=== PATIENT | female | born 1990 | race Caucasian/White ===

== ENCOUNTER 2020-12-30 23:52 | Emergency (ER) | payer BC, SELFPAY ==
[2020-12-30 23:57] VITALS: BP 149/93; PULSE 72; RESP 15; TEMP 36.3; O2SAT 100
[2020-12-31 00:24] LABS: Basophils Percent Auto 0.4 % (0.2-1.2); Eosinophils Absolute Auto 0.2 K/mm3 (0-0.3); Eosinophils Percent Auto 1.6 % (0-4.4); Hematocrit 39.6 % (37.0-47.0); Hemoglobin 13.4 g/dL (12.0-15.0); Immature Granulocyte Absolute 0.03 K/mm3 (0.00-0.031); Immature Granulocyte Percent A 0.3 % (0-0.5); Lymphocytes Absolute Auto 4.84 K/mm3 (0.9-3.2); Lymphocytes Percent Auto 44.2 % (18.3-44.2); Mean Corpuscular HGB Conc 33.8 g/dl (32-36); Mean Corpuscular Hemoglobin 28.2 pg (26-34); Mean Corpuscular Volume 83.2 fl (80-100); Mean Platelet Volume 10.1 fl (7.4-10.4); Monocytes Absolute Auto 0.9 K/mm3 (0.1-0.6); Monocytes Percent Auto 8.6 % (2.6-8.5); Neutrophils Absolute Auto 4.9 K/mm3 (1.3-6.7); Neutrophils Percent Auto 44.9 % (45.5-73.1); Platelet Count Result 264 k/mm3 (150-375); Red Blood Count 4.76 M/mm3 (4.2-5.4)
[2020-12-31 00:33] LABS: Prothrombin Time 12.8 Seconds (11.1-14.7)
[2020-12-31 00:34] LABS: Alanine Aminotransferase 17 U/L (4-35); Albumin Level 3.9 g/dL (3.5-5.1); Alkaline Phosphatase 69 U/L (38-126); Anion Gap 10 mmol/L (8-16); Aspartate Amino Transferase 24 U/L (14-36); Bilirubin,Total 0.3 mg/dL (0.2-1.3); Blood Urea Nitrogen 15 mg/dL (7-17); Calcium 8.8 mg/dL (8.4-10.2); Carbon Dioxide 22 mmol/L (22-30); Chloride 106 mmol/L (98-107); Estimated CRCL calculation 136 ml/min; Estimated Glomerular Filt Rate > 60; Glucose 102 mg/dL (65-110); Partial Thromboplastin Time 33.1 SECONDS (22.3-36.8); Potassium 3.8 mmol/L (3.4-5.0); Sodium 138 mmol/L (137-145)
[2020-12-31 00:41] LABS: Add Urine Microscopic? YES; Appearance Urine Cloudy (Clear); Bilirubin Urine Negative (Negative); Blood Urine 3+ (Negative); Color Urine Yellow (Yellow); Glucose Urine UA Negative (Negative); Ketones Urine Negative (Negative); Leukocyte Esterase Ur Negative LEU/UL (Negative); Nitrate Urine Negative (Negative); Protein Urine 2+ mg/dL (Negative); RBC Urine >75 /hpf (0-2); Squamous Epithelial Cell Urine Occasional /hpf (Few); Urobilinogen Urine Negative mg/dL (<2.0)
[2020-12-31 00:44] LABS: Specific Grav Ur 1.034 (1.001-1.035)
--- NOTE | 2020-12-31 00:54 | ED.GENADULT ---
HPI - General Adult General Chief complaint: HR GENERALIST Stated complaint: vag bleeding, cramping Time Seen by Provider: 12/31/20 00:14 History of Present Illness HPI narrative: Patient is a 30-year-old female presents to emergency department with chief complaint of vaginal bleeding. Patient reports that she has been bleeding for several days reports that she has been on control vaginal ring be removed whenever she started spotting. Patient states that she has had some cramping and reports that she has been passing some large clots. The patient denies lightheadedness denies syncope. Patient states that the symptoms or not improved by anything reports she went through several pads in the last hour. Patient states that she is not had problems with heavy bleeding like this before in the past. Patient denies being . Related Data Allergies Allergy/AdvReac Type Severity Reaction Status Date / Time No Known Allergies Allergy Mild Verified 08/27/07 17:44 Review of Systems Review of Systems: A 10 system review of systems was completed on the patient and is negative except for what is stated in the HPI. Nursing and ancillary documentation was reviewed. Exam Narrative: GENERAL: Well-appearing, well-nourished, and in no acute distress. HEAD: Normocephalic, atraumatic. EYES: PERRLA and EOMI. ENT: Nares clear, no rhinorrhea or epistaxis. Mucous membranes moist. NECK: Supple. CHEST: Clear to auscultation. No respiratory distress. HEART: Regular rate and rhythm. No murmur heard. Normal peripheral pulses. ABDOMEN: Soft, nontender, nondistended, normal active bowel sounds. EXTREMITIES: Normal range of motion. No edema. SKIN: Warm, dry, no rash. NEURO: No focal deficits. Alert and oriented x3. PSYCH: Normal mood and affect. Course Vital Signs Vital signs: Vital Signs Temperature 36.3 C L 12/30/20 23:57 Pulse Rate 72 12/30/20 23:57 Respiratory Rate 15 12/30/20 23:57 Blood Pressure 149/93 H 12/30/20 23:57 Pulse Oximetry 100 12/30/20 23:57 Temperature 36.3 C L 12/30/20 23:57 Pulse Rate 72 12/30/20 23:57 Respiratory Rate 15 12/30/20 23:57 Blood Pressure 149/93 H 12/30/20 23:57 Pulse Oximetry 100 12/30/20 23:57 Medical Decision Making Vital Signs Vital Signs: Vital Signs Temperature 36.3 C L 12/30/20 23:57 Pulse Rate 72 12/30/20 23:57 Respiratory Rate 15 12/30/20 23:57 Blood Pressure 149/93 H 12/30/20 23:57 Pulse Oximetry 100 12/30/20 23:57 Temperature 36.3 C L 12/30/20 23:57 Pulse Rate 72 12/30/20 23:57 Respiratory Rate 15 12/30/20 23:57 Blood Pressure 149/93 H 12/30/20 23:57 Pulse Oximetry 100 12/30/20 23:57 Lab Data Result diagrams: 12/31/20 00:19 12/31/20 00:19 Labs: Lab Results 12/31/20 12/31/20 12/31/20 Range/Units 00:19 00:19 00:19 WBC 11.0 H (4.5-10.0) K/mm3 RBC 4.76 (4.2-5.4) M/mm3 Hgb 13.4 (12.0-15.0) g/dL Hct 39.6 (37.0-47.0) % MCV 83.2 (80-100) fl MCH 28.2 (26-34) pg MCHC 33.8 (32-36) g/dl RDW 12.0 (11.5-14.5) % Plt Count 264 (150-375) k/mm3 MPV 10.1 (7.4-10.4) fl Immature Gran % (Auto) 0.3 (0-0.5) % Neut % (Auto) 44.9 L (45.5-73.1) % Lymph % (Auto) 44.2 (18.3-44.2) % [place] % (Auto) 8.6 H (2.6-8.5) % Eos % (Auto) 1.6 (0-4.4) % Baso % (Auto) 0.4 (0.2-1.2) % Lymph # (Auto) 4.84 H (0.9-3.2) K/mm3 [place] # (Auto) 0.9 H (0.1-0.6) K/mm3 Eos # (Auto) 0.2 (0-0.3) K/mm3 Baso # (Auto) 0.0 (0.0-0.1) K/mm3 Abs Immat Gran (auto) 0.03 (0.00-0.031) K/mm3 Absolute Neuts (auto) 4.9 (1.3-6.7) K/mm3 Absolute Nucleated RBC 0.0 (0.0-0.012) K/mm3 Nucleated RBC % 0.0 (0.0-0.2) % PT 12.8 (11.1-14.7) Seconds INR 1.0 APTT 33.1 (22.3-36.8) SECONDS Sodium 138 (137-145) mmol/L Potassium 3.8 (3.4-5.0) mmol/L Chloride 106 (98-107) mmol/L Carbon Dioxide 22 (22-30) mmol/L An
[2020-12-31 01:30] VITALS: BP 120/76; PULSE 65; RESP 17; TEMP 36.5; O2SAT 100
== END 2020-12-31 01:31 | disposition home or self-care (01) ==
PROVIDERS: Emergency Provider Emergency Medicine
DX: N93.8 Other specified abnormal uterine and vaginal bleeding (principal)
CPT/HCPCS: 36415; 80053; 81001; 81025; 85025; 85610; 85730; 87086; 87088; 99283

== ENCOUNTER 2024-06-06 09:18 | Outpatient (CLI) | payer OTHER, SELFPAY ==
[2024-06-06 09:46] LABS: Hemoglobin A1C 5.1 % (<5.7)
--- OUTSIDE RECORDS SUMMARY | 2024-06-06 10:14 | XMS_ITS | CONTINUITY OF CARE DOCUMENT ---
Author Name charissaadriannatraci loco Address Unknown Organization [facility] Address [address] [place] [address] Phone [phone] Care Team Providers Care Land Management Forester Name Role Phone Josiah Barahona MD Unavailable Josiah Barahona MD Unavailable [phone] INS[employer]ANCE [employer] Payer name Policy type / Coverage type [place] red libertarian ID [employer] [facility] Commercial insurance company [id number] [facility] [id number]
[2024-06-07 00:21] LABS: Progesterone 1.4 ng/mL
[2024-06-07 02:09] LABS: DHEA-Sulfate 275 mcg/dL (19-237); FSH 3.3 mIU/mL; Prolactin 9.8 ng/mL
[2024-06-08 11:48] LABS: Testosterone Total 53 ng/dL (2-45)
== END 2024-06-06 09:19 | disposition home or self-care (01) ==
LOC: ANHLAB 09:19
PROVIDERS: Visit Provider Student in an Organized Health Care Education/Training Program
DX: E28.2 Polycystic ovarian syndrome (principal)
CPT/HCPCS: 36415; 82627; 82670; 83001; 83036; 84144; 84146; 84403

== ENCOUNTER 2025-01-05 00:54 | Observation (INO) | payer OTHER, SELFPAY ==
--- NOTE | ~2025-01-05 | US_ITS ---
EXAMINATION: US OB limited, US OB transvaginal DATE: 01/05/2025 08:10 INDICATION: Vaginal bleeding. Assess placenta. TECHNIQUE: Real-time ultrasound of the pelvis was performed. The interpreting radiologist was not present for the study. COMPARISON: None. FINDINGS: There is a single living fetus in variable presentation. The placenta is fundal with caudal margin 4.4 cm from the internal cervical os. heart rate is 146 beats per minute (bpm). The amniotic fluid index is 9.9 cm, which is normal. (5th%-95%: 8.7-20.2 cm at 18 weeks estimated gestational age). Cervical length of 4.5 cm with minimal amount of anechoic fluid measuring up to 2 mm in maximal thickness in the endocervical canal. IMPRESSION: 1. Single living fetus in variable presentation with heart rate of 146 bpm. 2. Normal amniotic fluid index of 9.9 cm. Reviewed, dictated and finalized at location A. EMENTATION DIRECTOR IMPRESSION: 1. Single living fetus in variable presentation with heart rate of 146 bp m. 2. Normal amniotic fluid index of 9.9 cm.
[2025-01-05 00:58] VITALS: BP 138/95; PULSE 91; RESP 20; TEMP 36.9; O2SAT 99
[2025-01-05 01:55] VITALS: BP 129/87; PULSE 94; RESP 20; O2SAT 98
[2025-01-05 02:01] VITALS: BP 141/99; O2SAT 97
--- OUTSIDE RECORDS SUMMARY | 2025-01-05 02:04 | XMS_ITS | Clinical Summary ---
Author Organization [facility] Address [address] [place] [address] Care Team Providers Care Freight Trucker Name Role Phone Unavailable Primary Care Provider Unavailabl e Source Comments [facility],non-owned Affiliates and Associated Physician Practices is amultiple site organization consisting of ambulatory clinics and hospital sitesin [place], [place], [place] and [place]. This disclosure is being madepursuant to the Care Everywhere program and may not contain all information available regarding this patient. Last updated 17.[facility] Allergies Active Allergy Reactions Criticality Noted Date Comments Nifedipine Urticaria Medium 11/21/2024 Medications * Be aware that medications may not be up to date on this document. Alwaysverify current medications with the patient. Vit-Fe Fumarate-FA (VINATE ONE) 60-1 MG TABS 7 Active enoxaparin (Lovenox) 40 MG/0.4ML injectionIndic ations:Deep Vein Thrombosis Inject 0.4 mL subcutaneously once daily Reasons: Blood Clot in a Deep Vein Active famotidine (Pepcid) 10 MG tablet Take 1 (one) tablet by mouth Active metoclopramide (Reglan) 10 MG tabletIndicati ons:Nausea and/or Vomiting in Take 0.5 (one-half) tablet by mouth once Reasons: Nausea and Vomiting in Active aspirin EC (Ecotrin) 81 MG tabletIndicati ons:Preeclamps ia Take 1 (one) tablet by mouth once daily Reasons: Increased Blood Pressure and Edema During Active Active Problems Problem Noted Date Diagnosed Date Nausea and vomiting during 12/02/2024 Advanced maternal age in multigravida 11/23/2024 History of section complicating pregnan cy 11/23/2024 BMI 36.0-36.9,adult 11/23/2024 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 resulting from in vitro fertilization, antepartum 11/23/2024 Personal history of DVT (deep vein thrombosis) 1 Estimated Date of Delivery Comme nts Yes 06/08/2025 Based on Patient Reported, 5 Day transfer day on 09/20 Encounters Date Type Department Care Team Description 12/20/2024 8:10 AM WET SUIT GLUER - 12/20/2024 11:59 PM WET SUIT GLUER Hospital Encounter [facility] [address] [place] [phone] Lizy Shipman MD Discharge Disposition: Home or Self Care 11/29/2024 Telephone [facility] [address] [place] [phone] Briana Grace RN Results (NIPT) 11/23/2024 8:56 AM CDT - 11/23/2024 11:59 PM CDT Hospital Encounter [facility] [address] [place] [phone] Yesenia Mueller MD Discharge Disposition: Home or Self Care 11/23/2024 8:54 AM CDT - 11/23/2024 8:55 AM CDT Hospital Encounter [facility] [address] [place] [phone] Yesenia Mueller MD Discharge Disposition: Home or Self Care from Last 3 Months Family History Medical History Relation Name Comments Hypertension Brother Cancer Father Diabetes - Type 2 Father Other - Cardiac Father COPD - Chronic Obstructive Pulmonary Disease Mother Other - Cardiac Mother Schizophrenia Mother Cancer - Prostate Paternal Grandfather Diabetes - Type 2 Paternal Grandfather Hypertension Paternal Grandfather Osteoporosis Paternal Grandmother Other - Cardiac Paternal Grandmother Relation Name Status Comments Brother Father Maternal Grandfather Maternal Grandmother Mother Paternal Grandfather Paternal Grandmother Social History Tobacco Use Types Packs/Day Years Used Date Smoking Tobacco: Never Smokeless Tobacco: Never Alcohol Use Standard Drinks/Week Comments Not Currently 0 (1 standard drink = 0.6 oz pur e alcohol) Estimated Date of Delivery Comme nts Yes 06/08/2025 Based on Patient Reported, 5 Day transfer day on 09/20 Sex and Gender Information Value Date Recorded Sex Assigned at Not on file Legal Sex Female 5:12 PM WET SUIT GLUER Gender Identity Not on file Sexual Orientation Not on file Last Filed Vital Signs Vital Sign Reading Time Taken Comments Blood Pressure 125/84 11/23/2024 9:29 AM CDT Pulse 73 11/23/2024 9:29 AM CDT Temperature - - Respiratory Rate - - Oxygen Saturation - - Inhaled Oxygen Concentration - - Weight 100.8 kg (222 lb 3.2 oz) 02/04/2017 3:13 PM WET SUIT GLUER Height 167.6 cm (5' 6) 11/23/2024 9:29 AM CDT Body Mass Index 35.86 02/04/2017 3:13 PM WET SUIT GLUER Plan of Treatment Upcoming Encounters Date Type Department Care Team (Late st Contact Info) Description 01/18/2025 9:45 AM WET SUIT GLUER Appointment [facility] [address] [place], [place] [id number] Health Maintenance Due Date Last Done Comments HIV SCREENING 2003 HEPATITIS C SCREENING 04/01/2006 DTAP/TDAP/TD VACCINES (1 - Tdap) 2007 HEPATITIS B VACCINE (1 of 3 - 19+ 3-dose series) 2007 Cervical Cancer Screening 2009 PAP SMEAR 2009 HPV VACCINE (1 - 3-dose SCDM series) 2015 PAP with HPV 2018 DEPRESSION SCREENING 02/17/2024 COVID-19 VACCINE ( - 2024-2 6 season) 2024 INFLUENZA VACCINE (#1) 2024 OB-TDAP CURRENT 03/09/2025 04/19/2018 ZOSTER VACCINE (1 of 2) 2038 HIB VACCINE Aged Out No longer eligi ble based on patient's age to complete this topic MENINGOCOCCAL (Group B) VACC INE SHARED DECISION-MAKING Aged Out No longer eligibl e based on patient's age to complete this topic MENINGOCOCCAL GROUPS A/C/Y/W VACCINE Aged Out No longer eligible b ased on patient's age to complete this topic PNEUMOCOCCAL VACCINE Aged Out No long er eligible based on patient's age to complete this topic Respiratory Syncytial Virus (RSV) Vaccine Pt: or over 60 yrs (No Doses Required) Completed Procedures Procedure Name Priority Date/Time Associated Diagnosis Comments SONOGRAM - COMPLETE Routine 12/20/2024 8:18 AM WET SUIT GLUER History of DVT (deep vein thrombosis) resulting from in vitro fertilization, antepartum (HCC) Antepartum multigravida of advanced maternal age (HCC) History of 3 sections Maternal morbid obesity, antepartum (HCC) Encounter for nuchal translucency testing (HCC) Encounter for ultrasound (HCC) SONOGRAM - COMPLETE Routine 11/23/2024 9:01 AM CDT History of DVT (deep vein thrombosis) resulting from in vitro fertilization, antepartum (HCC) Antepartum multigravida of advanced maternal age (HCC) Encounter for nuchal translucency testing (HCC) from Last 3 Months Results * Sonogram - Complete (12/20/2024 8:18 AM WET SUIT GLUER) Only the most recent of2 resultswithin the time period is included. Linked Results Indication ======== Encounter for assisted reproductive fertility procedure cycle Advanced maternal age (AMA), multigravida Maternal obesity complicating , class 2 (BMI 35.0 - 39.9) Maternal History of DVT Personal history of other specified conditions anatomy evaluation History ====== General History Family History of DiGeorge, Niece-FOB is patients half brother OB History 5. Para 3 [id number] 1. live 2008. Gest. age 37 w + 0 d. Weight 2,920 g. Sex of child: male. Details: delivery; Elevated BP 2. live 2010. Gest. age 39 w + 0 d. Weight 3,940 g. Sex of child: male. Details: delivery 3. live 2018. Gest. age 37 w + 0 d. Weight 3,486 g. Sex of child: male. Details: delivery; Elevated BP Lab Tests Test Date Result NIPT Low risk, Male, Negative for DiGeorge Maternal Assessment Physical Exam Height 168 cm, 5 ft 6 in. Initial weight 104 kg, 229 lb. Initial BMI 36.96 kg/m Method ====== Transabdominal ultrasound. View: Sufficient ========= [facility] . Number of fetuses: 1 Dating ====== Date Details Gest. age CHRISTINE Conception Conception: IVF Embryo transfer 09/20/2024 IVF / ET: 5 d 15 w + 5 d 06/08/2025 Stated CHRISTINE 15 w + 5 d 06/08/2025 U/S 12/20/2024 based upon AC, BPD, Femur, HC 16 w + 3 d 06/03/2025 Assigned dating based on the IVF / ET date, selected on 11/23/2024 15 w + 5 d 06/08/2025 General Evaluation Cardiac activity present. FHR 145 bpm. Presentation: breech Placenta: Placental site: anterior Umbilical cord: Cord vessels: 3 vessel cord. Insertion site: normal insertion Amniotic fluid: Amount of AF: normal. MVP 4.5 cm Biometry BPD 33.6 mm 16w 3d 78% Hadlock HC 128.2 mm 16w 4d 78% Hadlock AC 117.5 mm 17w 3d 95% Hadlock Femur 18.1 mm 15w 3d 31% Hadlock Humerus 17.7 mm 15w 0d 28% Allison HC / AC 1.09 -/- 2% Hadlock Weight Calculation: EFW 157 g 86% Hadlock EFW (lb,oz) 0 lb 6 oz EFW by Hadlock (CAA-GA-TC-FL) overall normal range, but the AC is >90% Growth Overview Exam date GA BPD (mm) HC (mm) AC (mm) FL (mm) HL (mm) EFW (g) 12/20/2024 15w 5d 33.6 78% 128.2 78% 117.5 95% 18.1 31% 17.7 28% 157 86% Anatomy The following structures appear normal: Head / Neck Cranium. Abdomen Cord insertion. Stomach. Kidneys. Bladder. Genitals. Extremities / Skeleton Arms. Legs. The following structures could not be adequately visualized: Heart / Thorax 4-chamber view. sex: male. Maternal Structures Right Ovary Not visualized Appearance: Adnexa appears normal Left Ovary Not visualized Appearance: Adnexa appears normal Impression ========= Single, live, intrauterine at 15w5d The size is overall normal range, but the AC is >90% No major malformations were seen within the limitations of ultrasound The amniotic fluid volume is normal Follow-up ======== Ultrasound at 20 weeks gestation for growth, detailed anatomic survey and transvaginal cervical length screening Coding ====== Diagnoses Z87.898: Personal history of other specified conditions Z87.59: Personal history of other complications of O99.212, E66.812: Obesity complicating , class 2 (BMI 35.0 - 39.9) O09.522: Supervision of elderly multigravida Procedures 72459: US Preg Uterus >14 weeks [employer] PACS Anatomical Region Laterality Modality Other 12/20/2024 8:18 AM WET SUIT GLUER Prateek Boyd MD [facility] ORDERABLES Edited Result - Final from Last 3 Months Insurance [employer]
--- OUTSIDE RECORDS SUMMARY | 2025-01-05 02:04 | XMS_ITS | Clinical Summary ---
Author Organization [facility] Address [address] [place] [address] Phone Care Team Providers Care Marketing Analytics Specialist Name Role Phone Unavailable Primary Care Provider Unavailabl e Allergies Active Allergy Reactions Criticality Noted Date Comments Nifedipine Hives High 09/12/2024 Hives- leg swelling Medications VIT [id number] S ORAL Take by mouth. Active aspirin (ECOTRIN EC) 81 mg Tablet, Delayed Release (E.C.) Take 81 mg by mouth daily. Active estradioL (ESTRACE) 2 mg tablet Take 2 mg by mouth daily. Active Active Problems No known active problems Encounters Date Type Department Care Team Description 11/02/2024 External Device Data [facility] ABSTRACTION Provider, Abstract 10/18/2024 External Device Data [facility] ABSTRACTION Provider, Abstract from Last 3 Months Social History Tobacco Use Types Packs/Day Years Used Date Smoking Tobacco: Never Tobacco Cessation:Counseling Given: Not Answered Comments No Sex and Gender Information Value Date Recorded Sex Assigned at Not on file Legal Sex Female 10:05 AM CDT Gender Identity Not on file Sexual Orientation Not on file Last Filed Vital Signs Vital Sign Reading Time Taken Comments Blood Pressure 110/62 09/12/2024 1:03 PM CDT Pulse 77 09/12/2024 1:03 PM CDT Temperature - - Respiratory Rate - - Oxygen Saturation 97% 09/12/2024 1:03 PM CDT Inhaled Oxygen Concentration - - Weight 102.1 kg (225 lb) 09/12/2024 1:03 PM CDT Height 167.6 cm (5' 6) 09/12/2024 1:03 PM CDT Body Mass Index 36.32 09/12/2024 1:03 PM CDT Plan of Treatment Health Maintenance Due Date Last Done Comments Pre-Diabetes and Diabetes Screening 1988 DTAP/TDAP/TD VACCINES (1 - Tdap) 2007 HEPATITIS B VACCINES (1 of 3 - 19+ 3-dose series) 03/19 HPV/Cotest (21-29) 2009 HPV VACCINES (1 - 3-dose SCDM series) 2015 CERVICAL CANCER SCREENING 2018 HPV/Cotest (30-65) 2018 PAP SMEAR 2018 INFLUENZA VACCINE (#1) 2024 Insurance [facility] [employer]
[2025-01-05 02:56] LABS: Hematocrit 38.7 % (37.0-47.0); Hemoglobin 13.0 g/dL (12.0-15.0); Immature Granulocyte Percent A 0.4 % (0-0.5); Lymphocytes Absolute Auto 2.86 K/mm3 (0.9-3.2); Mean Corpuscular HGB Conc 33.6 g/dl (32-36); Mean Corpuscular Hemoglobin 27.7 pg (26-34); Mean Corpuscular Volume 82.5 fl (80-100); Nucleated Red Blood Cells Absolute Auto 0.000 K/mm3 (0.0-0.012); Nucleated Red Blood Cells Perc 0.0 % (0.0-0.2); Platelet Count Result 222 k/mm3 (150-375); Red Blood Count 4.69 M/mm3 (4.2-5.4); White Blood Count 12.9 K/mm3 (4.5-10.0)
[2025-01-05] MEDS: SODIUM CHLORIDE 0.9% IV 1,000 ML 999 ML IV CONT (02:56)
[2025-01-05 02:59] VITALS: PULSE 92; RESP 18; O2SAT 98
[2025-01-05 03:03] LABS: Alanine Aminotransferase 19 U/L (6-35); Albumin Level 3.8 g/dL (3.5-5.1); Alkaline Phosphatase 77 U/L (38-126); Anion Gap 9 mmol/L (4-12); Aspartate Amino Transferase 24 U/L (14-36); Bilirubin,Total 0.4 mg/dL (0.2-1.3); Blood Urea Nitrogen 6 mg/dL (7-17); Calcium 9.4 mg/dL (8.4-10.2); Carbon Dioxide 19 mmol/L (22-30); Chloride 107 mmol/L (98-107); Estimated CRCL calculation 175 ml/min; Estimated Glomerular Filt Rate > 60; Glucose 107 mg/dL (65-110); Potassium 4.1 mmol/L (3.4-5.0); Sodium 135 mmol/L (137-145); Total Protein 7.1 g/dL (6.3-8.2)
[2025-01-05 03:10] LABS: Add Urine Microscopic? YES; Appearance Urine Cloudy (Clear); Glucose Urine UA Negative (Negative); Leukocyte Esterase Ur Trace LEU/UL (Negative); Need Manual Microscopic Reviewed; Nitrate Urine Negative (Negative); Non Pathogenic Casts 0-2; Specific Grav Ur 1.010 (1.001-1.035)
[2025-01-05 03:30] LABS: INR 1.1; Prothrombin Time 14.8 Seconds (11.1-14.7)
[2025-01-05 03:33] LABS: Partial Thromboplastin Time 32.2 Seconds (22.3-36.8)
--- NOTE | 2025-01-05 03:37 | ED.PREGNANCY ---
HPI - General Chief complaint: Vaginal Bleeding <Cass Jhaveri APRN - Last Filed: 01/05/25 03:50> Stated complaint: bleeding <Cass Jhaveri APRN - Last Filed: 01/05/25 03:50> Time Seen by Provider: 01/05/25 01:52 <Cass Jhaveri APRN - Last Filed: 01/05/25 03:50> History of Present Illness HPI Narrative: Patient is a 34-year-old female who presents to the ER with vaginal bleeding during . She reports she felt a ?gush of fluids approximately 30 minutes prior to arrival. When patient went to bathroom she noticed bright red blood that soaked through her pants. Patient reports she sees Dr. Boyd as an OBGYN and her most recent appointment was approximately 1 week ago. She reports she also sees high risk at [facility] as she has a previous DVT and this is IVF. Patient denies any abdominal cramping but endorses intermittent lower back pain. She denies any other abnormal vaginal discharge, urinary symptoms, or recent fevers. Patient denies any recent sexual intercourse. <Cass Jhaveri APRN - Last Filed: 01/05/25 03:50> Related Data Home medications: Home Medications ?Medication ?Instructions ?Recorded ?Confirmed ?Last Taken ?Type vits no.126-ferrous fum tablet PO 10/31/24 12/28/24 01/04/25 History 28 mg iron-folic acid 800 mcg tablet (Classic ) aspirin 81 mg tablet 162 mg PO DAILY 11/30/24 01/05/25 01/04/25 History famotidine 10 mg tablet (Pepcid AC) 20 mg PO BID 11/30/24 01/05/25 01/04/25 History <Cass Jhaveri APRN - Last Filed: 01/05/25 03:50> Allergies/Adverse reactions: Allergies Allergy/AdvReac Type Severity Reaction Status Date / Time nifedipine (From Procardia) Allergy Mild Hives Verified 01/05/25 05:11 <Cass Jhaveri APRN - Last Filed: 01/05/25 03:50> Review of Systems Review of Systems: All systems reviewed & are unremarkable except as noted in HPI and below <Cass Jhaveri APRN - Last Filed: 01/05/25 03:50> PMFSH Past Medical History Medical History: Medical History Asthma <Cass Jhaveri APRN - Last Filed: 01/05/25 03:50> Surgical History Surgical History: Surgical History History of delivery x 3 H/O tubal ligation <Cass Jhaveri ELECTRICIAN MASTER - Last Filed: 01/05/25 03:50> Family History Family History: Family History Father Throat cancer Heart disease Mother Heart disease Grandparent Diabetes mellitus Throat cancer Other Hypertension <Cass Jhaveri APRN - Last Filed: 01/05/25 03:50> Social History Social History: Social History Smoking status: Former smoker Alcohol intake: former Alcohol use details: rare Substance use: never Substance use type: does not use Do You Feel Safe in your Home?: Yes Lack of Transportation: No Lack of Food: Never True Current Housing: I Have Housing Concerned About Future Housing: No Difficulty Paying Gas/Electric Bills: No Difficulty Paying for Meds: No Currently Unemployed: No Education: Decline to Answer Difficulty w/ Childcare or Family Care: No Living arrangements: with family Occupation/Education: unemployed Gender identity (if verbalized by the patient): Female Sexual Orientation (if Verbalized by the Patient): Straight or Heterosexual <Cass Jhaveri APRN - Last Filed: 01/05/25 03:50> Exam Narrative: GENERAL: Well appearing, well-nourished, non-toxic, in no acute distress. HEAD: Normocephalic, atraumatic. NECK: Supple. No adenopathy, no masses. RESPIRATORY: Airway patent, respirations nonlabored. Clear to auscultation bilaterally, no rales, rhonchi, wheezing. CARDIOVASCULAR: Regular rate and rhythm without murmurs, rubs, or gallops. Peripheral pulses 2+ and equal bilaterally. ABDOMINAL: Soft, nontender, nondistended, no hepatosplenomegaly. Normoactive BS. MUSCULOSKELETAL: Moves all extremities. Strength/ROM intact without gross deformities. SKIN: Warm, dry, normal color. No rashes. NEURO: A&O X3. Speech clear. Cranial nerves II-XII intact. No ataxic movements. PSYCHIATRIC: Appropriate mood and affect. Normal interaction. : significant amount of vaginal bleeding in the vaginal canal. Unable to view cervix d/t large amount of thin blood. No visible clots. <Cass Jhaveri, ELECTRICIAN MASTER - Last Filed: 01/05/25 03:50> Course Vital Signs Vital signs: Vital Signs Temperature 98.4 F 01/05/25 00:58 Pulse Rate 91 01/05/25 00:58 Respiratory Rate 20 01/05/25 00:58 Blood Pressure 138/95 H 01/05/25 00:58 Pulse Oximetry 99 01/05/25 00:58 Oxygen Delivery Room Air 01/05/25 00:58 Temperature 98.7 F 01/05/25 04:27 Pulse Rate 86 01/05/25 04:27 Respiratory Rate 18 01/05/25 04:36 Blood Pressure 124/84 01/05/25 04:27 Pulse Oximetry 98 01/05/25 04:27 Oxygen Delivery Room Air 01/05/25 04:36 <Cass Jhaveri, ELECTRICIAN MASTER - Last Filed: 01/05/25 03:50> Vital Signs Temperature 98.4 F 01/05/25 00:58 Pulse Rate 91 01/05/25 00:58 Respiratory Rate 20 01/05/25 00:58 Blood Pressure 138/95 H 01/05/25 00:58 Pulse Oximetry 99 01/05/25 00:58 Oxygen Delivery Room Air 01/05/25 00:58 Temperature 98.7 F 01/05/25 04:27 Pulse Rate 86 01/05/25 04:27 Respiratory Rate 18 01/05/25 04:36 Blood Pressure 124/84 01/05/25 04:27 Pulse Oximetry 98 01/05/25 04:27 Oxygen Delivery Room Air 01/05/25 04:36 <Eduardo Jacobs DO - Last Filed: 01/05/25 05:25> MDM - OB/Uterine Contractions MDM Narrative Medical decision making narrative: Patient is a 34-year-old female who presents to the ER with vaginal bleeding during . She reports she felt a ?gush of fluids approximately 30 minutes prior to arrival. When patient went to bathroom she noticed bright red blood that soaked through her pants. Patient reports she sees Dr. Boyd as an OBGYN and her most recent appointment was approximately 1 week ago. She reports she also sees high risk at [facility] as she has a previous DVT and this is IVF. Patient denies any abdominal cramping but endorses intermittent lower back pain. She denies any other abnormal vaginal discharge, urinary symptoms, or recent fevers. Patient denies any recent sexual intercourse. Labs Ordered: CBC, CMP, PTT, INR, UA, Rh immunoglobulin screen Imaging Ordered: Informal Ultrasound performed by OBGYN Medications Ordered: 1 L normal saline IV bolus Results: Patient's CBC indicates a white blood cell count of 12.9. Her coags indicated a PT of 14.8 seconds. Patient's chemistry indicates sodium 135, sodium of 19, BUN of 6, creatinine of 0.45. Her urinalysis indicates 2+ protein, 3+ blood, trace leukocytes, greater than 100 rbcs. Diagnosis: Threatened miscarriage, vaginal bleeding during Consults: 0230- Spoke with TIFFANY Boone. She reports she will come to the ER to evaluate pt. MDM: TIFFANY Boone, came in and performed an informal ultrasound and vaginal exam. She reports pt's cervix is closed. Dr. Sánchez reports she did not see any signs of placental abruption. She shared results of imaging with patient and her family. It was advised patient be admitted to the hospital for further evaluation and treatment. Patient verbalized understanding and is in agreement with plan. <Cass Jhaveri, LUIS FERNANDO - Last Filed: 01/05/25 03:50> Patient is a 34-year-old female who presents to the ER with vaginal bleeding during . She reports she felt a ?gush of fluids approximately 30 minutes prior to arrival. When patient went to bathroom she noticed bright red blood that soaked through her pants. Patient reports she sees Dr. Boyd as an OBGYN and her most recent appointment was approximately 1 week ago. She reports she also sees high risk at [facility] as she has a previous DVT and this is IVF. Patient denies any abdominal cramping but endorses intermittent lower back pain. She denies any other abnormal vaginal discharge, urinary symptoms, or recent fevers. Patient denies any recent sexual intercourse. Labs Ordered: CBC, CMP, PTT, INR, UA, Rh immunoglobulin screen Imaging Ordered: Informal Ultrasound performed by OBGYIsadora Medications Ordered: 1 L normal saline IV bolus Results: Patient's CBC indicates a white blood cell count of 12.9. Her coags indicated a PT of 14.8 seconds. Patient's chemistry indicates sodium 135, sodium of 19, BUN of 6, creatinine of 0.45. Her urinalysis indicates 2+ protein, 3+ blood, trace leukocytes, greater than 100 rbcs. Diagnosis: Threatened miscarriage, vaginal bleeding during Consults: 0- Spoke with TIFFANY Boone. She reports she will come to the ER to evaluate pt. MDM: TIFFANY Boone, came in and performed an informal ultrasound and vaginal exam. She reports pt's cervix is closed. Dr. Sánchez reports she did not see any signs of placental abruption. She shared results of imaging with patient and her family. It was advised patient be admitted to the hospital for further evaluation and treatment. Patient verbalized understanding and is in agreement with plan. This visit was performed by both a physician and an Advanced Practice Provider. I performed all aspects of the Medical Decision Making as documented. I personally performed a bedside ultrasound which did show appropriate activity with a heart rate in the 150s to 160s. No clear intrauterine hematoma or hemorrhage on my evaluation. <Eduardo Jacobs DO - Last Filed: 01/05/25 05:25> Differential Diagnosis Differential diagnosis: Likely other (Threatened miscarriage, vaginal bleeding during , urinary tract infection) <Cass Jhaveri APRN - Last Filed: 01/05/25 03:50> Lab Data Attestation: I reviewed the patient's lab results. <Cass Jhaveri APRN - Last Filed: 01/05/25 03:50> Result diagrams: 01/05/25 03:42 01/05/25 02:44 <Cass hJaveri APRN - Last Filed: 01/05/25 03:50> Labs: Lab Results 01/05/25 01/05/25 Range/Units 02:44 03:42 WBC 12.9 H (4.5-10.0) K/mm3 RBC 4.69 (4.2-5.4) M/mm3 Hgb 13.0 12.1 (12.0-15.0) g/dL Hct 38.7 36.3 L (37.0-47.0) % MCV 82.5 (80-100) fl MCH 27.7 (26-34) pg MCHC 33.6 (32-36) g/dl RDW 13.7 (11.5-14.5) % Plt Count 222 (150-375) k/mm3 MPV 10.6 H (7.4-10.4) fl Immature Gran % (Auto) 0.4 (0-0.5) % Neut % (Auto) 69.0 (45.5-73.1) % Lymph % (Auto) 22.2 (18.3-44.2) % [place] % (Auto) 6.6 (2.6-8.5) % Eos % (Auto) 1.6 (0-4.4) % Baso % (Auto) 0.2 (0.2-1.2) % Lymph # (Auto) 2.86 (0.9-3.2) K/mm3 [place] # (Auto) 0.9 H (0.1-0.6) K/mm3 Eos # (Auto) 0.2 (0-0.3) K/mm3 Baso # (Auto) 0.0 (0.0-0.1) K/mm3 Abs Immat Gran (auto) 0.05 H (0.00-0.031) K/mm3 Absolute Neuts (auto) 8.9 H (1.3-6.7) K/mm3 Absolute Nucleated RBC 0.000 (0.0-0.012) K/mm3 Nucleated RBC % 0.0 (0.0-0.2) % PT 14.8 H (11.1-14.7) Seconds INR 1.1 APTT 32.2 (22.3-36.8) Seconds Sodium 135 L (137-145) mmol/L Potassium 4.1 (3.4-5.0) mmol/L Chloride 107 (98-107) mmol/L Carbon Dioxide 19 L (22-30) mmol/L Anion Gap 9 (4-12) mmol/L BUN 6 L D (7-17) mg/dL Creatinine 0.45 L (0.7-1.0) mg/dL Estim Creat Clear Calc 175 ml/min Estimated GFR > 60 (59 - ) Glucose 107 (65-110) mg/dL Calcium 9.4 (8.4-10.2) mg/dL Total Bilirubin 0.4 (0.2-1.3) mg/dL AST 24 (14-36) U/L ALT 19 (6-35) U/L Alkaline Phosphatase 77 (38-126) U/L Total Protein 7.1 (6.3-8.2) g/dL Albumin 3.8 (3.5-5.1) g/dL Urine Color Light red H (Yellow) Urine Appearance Cloudy H (Clear) Urine pH 6.5 (5.0-9.0) Ur Specific [place] 1.010 (1.001-1.035) Urine Protein 2+ H (Negative) mg/dL Urine Glucose (UA) Negative (Negative) mg/dL Urine Ketones Negative (Negative) mg/dL Ur Blood (Man) 3+ H (Negative) Urine Nitrate Negative (Negative) Urine Bilirubin Negative (Negative) Urine Urobilinogen 1.0 (<2.0) mg/dL Add Ur Microanalysis Reviewed Leukocyte Esterase Rfl Trace H (Negative) KAUR/UL Urine RBC >100 H (0-2) /hpf Urine WBC 0-5 (0-3) /hpf Ur Squamous Epith Cells None seen (Few) /hpf Urine Bacteria None seen /hpf Urine Casts 0-2 Blood Type O Positive Antibody Screen Negative Screen TNP Baby's Blood Type Not Reportable Baby's JOSE Not Reportable Doses of RhIg Required 0 <Cass Jhaveri, ELECTRICIAN MASTER - Last Filed: 01/05/25 03:50> Lab Results 01/05/25 01/05/25 Range/Units 02:44 03:42 WBC 12.9 H (4.5-10.0) K/mm3 RBC 4.69 (4.2-5.4) M/mm3 Hgb 13.0 12.1 (12.0-15.0) g/dL Hct 38.7 36.3 L (37.0-47.0) % MCV 82.5 (80-100) fl MCH 27.7 (26-34) pg MCHC 33.6 (32-36) g/dl RDW 13.7 (11.5-14.5) % Plt Count 222 (150-375) k/mm3 MPV 10.6 H (7.4-10.4) fl Immature Gran % (Auto) 0.4 (0-0.5) % Neut % (Auto) 69.0 (45.5-73.1) % Lymph % (Auto) 22.2 (18.3-44.2) % [place] % (Auto) 6.6 (2.6-8.5) % Eos % (Auto) 1.6 (0-4.4) % Baso % (Auto) 0.2 (0.2-1.2) % Lymph # (Auto) 2.86 (0.9-3.2) K/mm3 [place] # (Auto) 0.9 H (0.1-0.6) K/mm3 Eos # (Auto) 0.2 (0-0.3) K/mm3 Baso # (Auto) 0.0 (0.0-0.1) K/mm3 Abs Immat Gran (auto) 0.05 H (0.00-0.031) K/mm3 Absolute Neuts (auto) 8.9 H (1.3-6.7) K/mm3 Absolute Nucleated RBC 0.000 (0.0-0.012) K/mm3 Nucleated RBC % 0.0 (0.0-0.2) % PT 14.8 H (11.1-14.7) Seconds INR 1.1 APTT 32.2 (22.3-36.8) Seconds Sodium 135 L (137-145) mmol/L Potassium 4.1 (3.4-5.0) mmol/L Chloride 107 (98-107) mmol/L Carbon Dioxide 19 L (22-30) mmol/L Anion Gap 9 (4-12) mmol/L BUN 6 L D (7-17) mg/dL Creatinine 0.45 L (0.7-1.0) mg/dL Estim Creat Clear Calc 175 ml/min Estimated GFR > 60 (59 - ) Glucose 107 (65-110) mg/dL Calcium 9.4 (8.4-10.2) mg/dL Total Bilirubin 0.4 (0.2-1.3) mg/dL AST 24 (14-36) U/L ALT 19 (6-35) U/L Alkaline Phosphatase 77 (38-126) U/L Total Protein 7.1 (6.3-8.2) g/dL Albumin 3.8 (3.5-5.1) g/dL Urine Color Light red H (Yellow) Urine Appearance Cloudy H (Clear) Urine pH 6.5 (5.0-9.0) Ur Specific [place] 1.010 (1.001-1.035) Urine Protein 2+ H (Negative) mg/dL Urine Glucose (UA) Negative (Negative) mg/dL Urine Ketones Negative (Negative) mg/dL Ur Blood (Man) 3+ H (Negative) Urine Nitrate Negative (Negative) Urine Bilirubin Negative (Negative) Urine Urobilinogen 1.0 (<2.0) mg/dL Add Ur Microanalysis Reviewed Leukocyte Esterase Rfl Trace H (Negative) KAUR/UL Urine RBC >100 H (0-2) /hpf Urine WBC 0-5 (0-3) /hpf Ur Squamous Epith Cells None seen (Few) /hpf Urine Bacteria None seen /hpf Urine Casts 0-2 Blood Type O Positive Antibody Screen Negative Screen TNP Baby's Blood Type Not Reportable Baby's JOSE Not Reportable Doses of RhIg Required 0 <Eduardo Jacobs DO - Last Filed: 01/05/25 05:25> Discharge Plan Discharge Clinical Impression: Threatened , Vaginal bleeding during <Cass Jhaveri APRN - Last Filed: 01/05/25 03:50> Patient Disposition: Still a Patient <Cass Jhaveri APRN - Last Filed: 01/05/25 03:50> Condition: Serious <Cass Jhaveri APRN - Last Filed: 01/05/25 03:50>
--- NOTE | 2025-01-05 03:52 | PM.IMHP ---
H&P: HPI History of Present Illness Date/Time: 01/05/25 03:52 Chief Complaint: vaginal bleeding Narrative: 34 y/o at 18 weeks presented to ED with acute onset of bleeding. She noticed a gush at 0100 and noticed blood and presented to ED. Has mild cramping. On initial assessment in ED large amount of blood in vault and they were unable to assess cervix. PNC significant for h/o DVT, she is not taking Lovenox, she is taking aspirin, also this is an IVF conception after prior tubal ligation, AMA, 3 prior c/s. Abnormal early one hour glucola with current . Recent MFM ultrasound showed anterior placenta. Blood type O+. H/H unchanged from last H/H. PT mildly increased. Brief ultrasound in ED by ED attending showed cardiac activity, no obvious abnormalities. I repeated bedside ultrasound, grossly normal amniotic fluid, breech position, movement and cardiac activity present. FHT 144. Review of Systems Review of Systems: All systems reviewed & are unremarkable except as noted in HPI and below Constitutional: Constitutional: Reports no additional constitutional complaints and Denies headache(s) ENT: Reports system reviewed and no additional complaints, except as documented Cardiovascular: Cardiovascular: Denies chest pain and Denies dyspnea Respiratory: Respiratory: Denies dyspnea Gastrointestinal: Gastrointestinal: Reports no additional gastrointestinal complaints Genitourinary: Genitourinary: Reports amenorrhea Musculoskeletal: Musculoskeletal: Reports no additional musculoskeletal complaints Neurologic: Denies headache(s) Psychiatric: Psychiatric: Reports no additional psychiatric complaints PMFSH Past Medical History Medical History Asthma Surgical History Surgical History History of delivery x 3 H/O tubal ligation Family History Family History Father Throat cancer Heart disease Mother Heart disease Grandparent Diabetes mellitus Throat cancer Other Hypertension Social History Social History Smoking status: Former smoker Alcohol intake: former Alcohol use details: rare Substance use: never Substance use type: does not use Do You Feel Safe in your Home?: Yes Lack of Transportation: No Lack of Food: Never True Current Housing: I Have Housing Concerned About Future Housing: No Difficulty Paying Gas/Electric Bills: No Difficulty Paying for Meds: No Currently Unemployed: No Education: High School Diploma/GED Difficulty w/ Childcare or Family Care: No Living arrangements: with family Occupation/Education: unemployed Gender identity (if verbalized by the patient): Female Sexual Orientation (if Verbalized by the Patient): Straight or Heterosexual Meds Home Medications and Allergies Home Medications ?Medication ?Instructions ?Recorded ?Confirmed ?Type vits no.126-ferrous fum tablet PO 10/31/24 12/28/24 History 28 mg iron-folic acid 800 mcg tablet (Classic ) aspirin 81 mg tablet 162 mg PO DAILY 11/30/24 12/28/24 History famotidine 10 mg tablet (Pepcid AC) 20 mg PO BID 11/30/24 12/28/24 History ondansetron HCl 4 mg tablet 4 mg PO Q6H PRN nausea and 11/30/24 12/28/24 Rx vomiting #30 tabs Allergies Allergy/AdvReac Type Severity Reaction Status Date / Time nifedipine (From Procardia) Allergy Mild Hives Verified 01/05/25 00:55 Vital Signs Vital Signs - 24 hr 01/05/25 00:58 01/05/25 01:55 Temperature 98.4 F Pulse Rate 91 94 Respiratory Rate 20 20 Blood Pressure 138/95 H 129/87 Pulse Oximetry 99 98 Oxygen Delivery Room Air Exam Const: General: no acute distress Eyes: General: appearance normal, both eyes and all related structures Resp: Effort & Inspection: normal respiratory effort Cardio: Rate: regular rate GI: Other: Fundus palpable at +1 umbilicus, non tender no right upper quadrant pain : External Female Exam: normal external appearance Speculum Exam - Vagina: normal appearance of the vagina (small amount dark blood post vag, no active pooling) Speculum Exam - Cervix: normal appearance of the cervix (closed thick) Skin: General skin exam: no rashes or lesions noted Neuro: Cognition (Neuro): normal cognition Extrem: General: normal to inspection Psych: Appearance: grossly normal H&P: Results Labs Labs: Short CBC 01/05/25 Range/Units 02:44 WBC 12.9 H (4.5-10.0) K/mm3 Hgb 13.0 (12.0-15.0) g/dL Hct 38.7 (37.0-47.0) % Plt Count 222 (150-375) k/mm3 BMP 01/05/25 02:44 Sodium 135 L Potassium 4.1 Chloride 107 Carbon Dioxide 19 L BUN 6 L D Creatinine 0.45 L Glucose 107 Calcium 9.4 Liver Function 01/05/25 Range/Units 02:44 Total Bilirubin 0.4 (0.2-1.3) mg/dL AST 24 (14-36) U/L ALT 19 (6-35) U/L Alkaline Phosphatase 77 (38-126) U/L Albumin 3.8 (3.5-5.1) g/dL Urine 01/05/25 Range/Units 02:44 Urine Color Light red H (Yellow) Urine Appearance Cloudy H (Clear) Urine pH 6.5 (5.0-9.0) Ur Specific [place] 1.010 (1.001-1.035) Urine Protein 2+ H (Negative) mg/dL Urine Glucose (UA) Negative (Negative) mg/dL Assessment and Plan Assessment and plan (1) Threatened : Code(s): O20.0 - Threatened Status: Acute Assessment and Plan: 1. Admit to L and D for observation. 2. Monitor for signs of rupture of membranes, monitor cbc and pad count. 3. Formal ultrasound in am.
[2025-01-05 04:23] LABS: Hematocrit 36.3 % (37.0-47.0); Hemoglobin 12.1 g/dL (12.0-15.0)
[2025-01-05 04:27] VITALS: BP 124/84; PULSE 86; RESP 20; TEMP 37.1; O2SAT 98
--- NOTE | 2025-01-05 04:29 | WPCEDHO ---
ED Hand Off Checklist All vitals saved:Y IV Site documented:Y All med administrations documented:Y Triage Note Triage Note Pt arrives w/ c/o bright red 01/05/25 00:58 vaginal bleeding x 30 minutes. Pt is 18wks , . Pt reports that this is an IVF . Pt Rh Positive. Allergies nifedipine (From Procardia) Allergy (Mild, Verified 01/05/25 00:55) Hives Current Diagnoses Threatened (01/05/25) Family History (Last Reviewed 01/05/25 @ 03:57 by Gaston Sánchez MD) Father Throat cancer Heart disease Mother Heart disease Grandparent Diabetes mellitus Throat cancer Other Hypertension Administered/Completed Medications Discontinued Medications Sodium Chloride (Normal Saline Iv) 1,000 mls @ 999 mls/hr IV CONT .Q1H1M STA Stop: 01/05/25 03:31 Last Infusion: 01/05/25 03:59 Dose: Infused Documented By: Admin: 01/05/25 02:56 Dose: 999 mls/hr Documented By: LISSETTE Interventions/Assessments IV / Saline Lock, Insert Start: 01/05/25 02:31 Freq: STAT Status: Active Protocol: Document 01/05/25 02:47 [facility] (Rec: 01/05/25 02:48 AMH [id number]) IV Assessment Peripheral Access Right Wrist IV Catheter Access Initiated IV Insertion Date 01/05/25 IV Insertion Time 02:48 Catheter Gauge 18 IV Insertion 1 Attempts Ultrasound Used for No Placement IV Site Assessment WNL IV Care and WNL Maintenance PA: Reproductive Assessment Start: 01/05/25 00:54 Freq: Status: Active Protocol: Document 01/05/25 01:55 AM[facility] (Rec: 01/05/25 01:56 AMH [id number]) Reproductive Assessment Now Yes Vaginal Bleeding Assessment Associated Symptoms Back Pain Amount Moderate Description Bright Red Last Vital Signs Temperature 98.7 F 01/05/25 04:27 Pulse Rate 86 01/05/25 04:27 Respiratory Rate 20 01/05/25 04:27 Pulse Oximetry 98 01/05/25 04:27 Blood Pressure 124/84 01/05/25 04:27 Blood Pressure Mean 97 01/05/25 04:27 Oxygen Delivery Room Air 01/05/25 00:58 Weight 105.6 kg 01/05/25 00:58 Last Result - Abnormals Only WBC 12.9 K/mm3 (4.5-10.0) H 01/05/25 02:44 Hct 36.3 % (37.0-47.0) L 01/05/25 03:42 MPV 10.6 fl (7.4-10.4) H 01/05/25 02:44 Daniels # (Auto) 0.9 K/mm3 (0.1-0.6) H 01/05/25 02:44 Abs Immat Gran (auto) 0.05 K/mm3 (0.00-0.031) H 01/05/25 02:44 Absolute Neuts (auto) 8.9 K/mm3 (1.3-6.7) H 01/05/25 02:44 PT 14.8 Seconds (11.1-14.7) H 01/05/25 02:44 Sodium 135 mmol/L (137-145) L 01/05/25 02:44 Carbon Dioxide 19 mmol/L (22-30) L 01/05/25 02:44 BUN 6 mg/dL (7-17) L D 01/05/25 02:44 Creatinine 0.45 mg/dL (0.7-1.0) L 01/05/25 02:44 Urine Color Light red (Yellow) H 01/05/25 02:44 Urine Appearance Cloudy (Clear) H 01/05/25 02:44 Urine Protein 2+ mg/dL (Negative) H 01/05/25 02:44 Ur Blood (Man) 3+ (Negative) H 01/05/25 02:44 Leukocyte Esterase Rfl Trace KAUR/UL (Negative) H 01/05/25 02:44 Urine RBC >100 /hpf (0-2) H 01/05/25 02:44 Most Recent Suicide Severity Rating Suicide Severity Rating NO RISK INDICATED 01/05/25 00:58
[2025-01-05 04:36] VITALS: RESP 18
[2025-01-05] MEDS: SODIUM CHLORIDE 0.9% IV 1,000 ML 125 ML IV CONT (04:47)
[2025-01-05] MEDS: ACETAMINOPHEN 325 MG TABLET 650 MG PO (05:05)
--- NOTE | 2025-01-05 05:14 | OBADM ---
This patient, Dorothy Landon, admitted to the OB room OB Post 116 for observation. Patient/family oriented to hospital policies and general routines including ID bracelet, bed and alarms, visiting hours, pain management, procedures, bathroom and other care routines, personal items, smoking policy, room service/diet, and visiting hours. Patient/Family are encouraged to report perceived risks to care and to ask questions if they do not understand what they are told or what they should do.
--- NOTE | 2025-01-05 05:19 | PC.NURSE ---
0436- RN received report from Tamie Ness RN. Upon arrival to unit, dime sized spot of bright red blood noted on chux in wheelchair. Pt provided with peripads and educated to call out when pad is changed so RN may weigh pad. Pt verbalizes understanding. RN doppled FHTs at this time. FHTs noted to be in 160's. RN discussed plan of care with pt. Pt and significant other agreeable to plan of care.
[2025-01-05 07:19] LABS: Hematocrit 34.8 % (37.0-47.0); Hemoglobin 11.7 g/dL (12.0-15.0); Immature Granulocyte Percent A 0.6 % (0-0.5); Lymphocytes Absolute Auto 3.13 K/mm3 (0.9-3.2); Mean Corpuscular HGB Conc 33.6 g/dl (32-36); Mean Corpuscular Hemoglobin 27.9 pg (26-34); Mean Corpuscular Volume 83.1 fl (80-100); Nucleated Red Blood Cells Absolute Auto 0.000 K/mm3 (0.0-0.012); Nucleated Red Blood Cells Perc 0.0 % (0.0-0.2); Platelet Count Result 238 k/mm3 (150-375); Red Blood Count 4.19 M/mm3 (4.2-5.4); White Blood Count 10.9 K/mm3 (4.5-10.0)
--- NOTE | 2025-01-05 07:39 | PC.NURSE ---
0711--Pt. up to BR, quarter size blood clot noted in commode, with scant blood noted on marcial pad. Pt. then to u/s via wheelchair.
--- NOTE | 2025-01-05 08:30 | P.PNOB_ITS ---
OB - Triage/Final Diagnosis Visit Information Date of evaluation: 01/05/25 Reason for evaluation: threatened labor Comments/Additional reasons for admission: I have assessed the risk for this patient, Dorothy Landon, and determined that she would benefit from observation care. Evaluation Laboratory results: Laboratory Tests 01/05/25 01/05/25 01/05/25 02:44 03:42 07:09 WBC 12.9 H 10.9 H RBC 4.69 4.19 L Hgb 13.0 12.1 11.7 L Hct 38.7 36.3 L 34.8 L MCV 82.5 83.1 MCH 27.7 27.9 MCHC 33.6 33.6 RDW 13.7 14.1 Plt Count 222 238 MPV 10.6 H 10.3 Immature Gran % (Auto) 0.4 0.6 H Neut % (Auto) 69.0 61.9 Lymph % (Auto) 22.2 28.8 [place] % (Auto) 6.6 7.0 Eos % (Auto) 1.6 1.4 Baso % (Auto) 0.2 0.3 Lymph # (Auto) 2.86 3.13 [place] # (Auto) 0.9 H 0.8 H Eos # (Auto) 0.2 0.2 Baso # (Auto) 0.0 0.0 Abs Immat Gran (auto) 0.05 H 0.06 H Absolute Neuts (auto) 8.9 H 6.7 Absolute Nucleated RBC 0.000 0.000 Nucleated RBC % 0.0 0.0 PT 14.8 H INR 1.1 APTT 32.2 Sodium 135 L Potassium 4.1 Chloride 107 Carbon Dioxide 19 L Anion Gap 9 BUN 6 L D Creatinine 0.45 L Estim Creat Clear Calc 175 Estimated GFR > 60 Glucose 107 Calcium 9.4 Total Bilirubin 0.4 AST 24 ALT 19 Alkaline Phosphatase 77 Total Protein 7.1 Albumin 3.8 Urine Color Light red H Urine Appearance Cloudy H Urine pH 6.5 Ur Specific [place] 1.010 Urine Protein 2+ H Urine Glucose (UA) Negative Urine Ketones Negative Ur Blood (Man) 3+ H Urine Nitrate Negative Urine Bilirubin Negative Urine Urobilinogen 1.0 Add Ur Microanalysis Reviewed Leukocyte Esterase Rfl Trace H Urine RBC >100 H Urine WBC 0-5 Ur Squamous Epith Cells None seen Urine Bacteria None seen Urine Casts 0-2 Blood Type O Positive Antibody Screen Negative Screen TNP Baby's Blood Type Not Reportable Baby's JOSE Not Reportable Doses of RhIg Required 0 Vital signs: Vital Signs - 24 hr 01/05/25 00:58 01/05/25 01:55 01/05/25 02:01 Temperature 98.4 F Pulse Rate 91 94 Respiratory Rate 20 20 Blood Pressure 138/95 H 129/87 141/99 H Pulse Oximetry 99 98 97 Oxygen Delivery Room Air 01/05/25 02:59 01/05/25 04:27 01/05/25 04:36 Temperature 98.7 F Pulse Rate 92 86 Respiratory Rate 18 20 18 Blood Pressure 124/84 Pulse Oximetry 98 98 Oxygen Delivery Room Air
--- NOTE | 2025-01-05 08:38 | PC.NURSE ---
0829--Report to Dr. Boyd re: u/s report and CBC results. Orders to DC home and have pt. f/u in office next week.
== END 2025-01-05 08:55 | disposition home or self-care (01) ==
LOC: ANHED 03:47 → ANHOBPP 04:02
PROVIDERS: Admitting Provider Obstetrics & Gynecology; Emergency Provider Registered Nurse; Visit Provider Obstetrics & Gynecology
DX: O20.0 Threatened abortion (principal); Z3A.18 18 weeks gestation of pregnancy
CPT/HCPCS: 36415; 76815; 76817; 80053; 81001; 85014; 85018; 85025; 85461; 85610; 85730; 86850; 86900; 86901; 96360; 99285; A9270; G0378; G0379; J7030

== ENCOUNTER 2025-01-07 14:09 | Observation (INO) | payer OTHER, SELFPAY ==
[2025-01-07] VITALS (12 sets, daily range): BP systolic 117–128; BP diastolic 71–79; PULSE 76–87; RESP 16; TEMP 36.7; O2SAT 97–99; BMI 37.3
--- NOTE | ~2025-01-07 | US_ITS ---
EXAMINATION: US OB transvaginal, 01/07/2025 15:08 FARM LOAN REPRESENTATIVE HISTORY: Vaginal Bleeding Comparison: None Technique: Doty-scale and color Doppler images were obtained. Findings: The cervical length measures 3.6 cm with minimal funneling noted of the cervical os itself, in this location there is an echogenic focus measuring 1.5 x 1 cm with adjacent umbilical cord noted. IMPRESSION: 1. The cervical length is within normal limits however there is minimal funneling noted of the cervical os. In this location there is a complex focus possibly mucous plug, distinction from a small amount of hemorrhage is limited. Follow-up is recommended to assess Reviewed, dictated and finalized at location P. LOAN REPRESENTATIVE IMPRESSION: 1. The cervical length is within normal limits however there is minimal funneli ng noted of the cervical os. In this location there is a complex focus possibly mucous plug, distinction from a small amount of hemorrhage is limited. Follow- up is recommended to assess
--- OUTSIDE RECORDS SUMMARY | 2025-01-07 14:14 | XMS_ITS | Clinical Summary ---
Author Organization [facility] Address [address] [place] [address] Care Team Providers Care Trade Economist Name Role Phone Unavailable Primary Care Provider Unavailabl e Source Comments [facility],non-owned Affiliates and Associated Physician Practices is amultiple site organization consisting of ambulatory clinics and hospital sitesin [place], [place], [place] and [place]. This disclosure is being madepursuant to the Care Everywhere program and may not contain all information available regarding this patient. Last updated 17.[facility] Allergies Active Allergy Reactions Criticality Noted Date [...] Department Care Team Description 12/20/2024 8:10 AM RAISE MINER - 12/20/2024 11:59 PM RAISE MINER Hospital Encounter [facility] [address] [place] [id number] Lizy Shipman MD Discharge Disposition: Home or Self Care 11/29/[address] [facility] [address] [place] [id number] Briana Grace RN Results (NIPT) 11/23/2024 8:56 AM CDT - 11/23/2024 11:59 PM CDT Hospital Encounter [facility] [address] [place] [id number] Yesenia Mueller MD Discharge Disposition: Home or Self Care 11/23/2024 8:54 AM CDT - 11/23/2024 8:55 AM CDT Hospital Encounter [facility] [address] [place] [id number] Yesenia Mueller MD Discharge Disposition: Home or [...] on file Legal Sex Female 5:12 PM RAISE MINER Gender Identity Not on file Sexual Orientation Not on file Last Filed Vital Signs Vital Sign Reading Time Taken Comments Blood Pressure 125/84 11/23/2024 9:29 AM CDT Pulse 73 11/23/2024 9:29 AM CDT Temperature - - Respiratory Rate - - Oxygen Saturation - - Inhaled Oxygen Concentration - - Weight 100.8 kg (222 lb 3.2 oz) 02/04/2017 3:13 PM RAISE MINER Height 167.6 cm (5' 6) 11/23/2024 9:29 AM CDT Body Mass Index 35.86 02/04/2017 3:13 PM RAISE MINER Plan of Treatment Upcoming Encounters Date Type Department Care Team (Late st Contact Info) Description 01/18/2025 9:45 AM RAISE MINER Appointment [facility] [address] [place], [place] [id number] Health Maintenance Due Date Last Done Comments [...] SONOGRAM - COMPLETE Routine 12/20/2024 8:18 AM RAISE MINER History of DVT (deep vein thrombosis) resulting [...] * Sonogram - Complete (12/20/2024 8:18 AM RAISE MINER) Only the most recent of2 resultswithin the [...] half brother OB History 5. Para 3 [id number] 1. live 2008. Gest. age 37 w [...] 0 lb 6 oz EFW by Hadlock ([id number]) overall normal range, but the AC is [...] 39.9) O09.522: Supervision of elderly multigravida Procedures 19107: US Preg Uterus >14 weeks Episencial PACS Anatomical Region Laterality Modality Other 12/20/2024 8:18 AM RAISE MINER Prateek Boyd MD [facility] ORDERABLES Edited Result - Final from Last 3 Months Insurance [employer]
--- OUTSIDE RECORDS SUMMARY | 2025-01-07 14:14 | XMS_ITS | Clinical Summary ---
Author Organization [facility] Address [address] [place] [address] Phone Care Team Providers Care Winder Operator Name Role Phone Unavailable Primary Care Provider Unavailabl e Allergies Active Allergy Reactions Criticality Noted Date Comments Nifedipine Hives High 09/12/2024 Hives- leg swelling Medications VIT [id number] S ORAL Take by mouth. Active aspirin [...] SMEAR 2018 INFLUENZA VACCINE (#1) 2024 Insurance [facility] [employer]
--- NOTE | 2025-01-07 14:46 | LDADM ---
This patient, Dorothy Landon, was admitted to [facility] on 01/07/25 at 14:09. Patient/family oriented to hospital policies and general routines including ID bracelet, bed and alarms, visiting hours, pain management, procedures, bathroom and other care routines, personal items, smoking policy, room service/diet and guest tray routines, infant security routines, and visiting hours. Patient/Family are encouraged to report perceived risks to care and to ask questions if they do not understand what they are told or what they should do. See OBIX for further documentation.
--- NOTE | 2025-01-07 14:57 | OBADM ---
This patient, Dorothy Landon, admitted to the OB room [facility] for observation. Pt. complains of bleeding starting today after experiencing this previously and then it came back. Pt states the bleeding is heavier than the last time she experienced this. Pt. showed RN a picture of toilet paper with a small amount of red blood on it. Pt states she has not saturated a pad but rather her bleeding is spotting. RN provided a new clean pad for pt. to change into for reference of how much bleeding pt. is experiencing. Doppler heart tones with a baseline of 145 BPM. Pt. complains of having stabbing pain in her abdomen which she rates a 2/10. Pt. also complains of pain in her lower back which she rates a 4/10. Pt. states since she got to the unit that her bleeding is not as heavy. Will continue to monitor pt. via toco for uterine activity. US ordered per order of MD. Patient/family oriented to hospital policies and general routines including ID bracelet, bed and alarms, visiting hours, pain management, procedures, bathroom and other care routines, personal items, smoking policy, room service/diet, and visiting hours. Patient/Family are encouraged to report perceived risks to care and to ask questions if they do not understand what they are told or what they should do.
--- NOTE | 2025-01-07 15:57 | PC.NURSE ---
1550- Dr. Wilburn calling unit for update on pt. Update on pt. bleeding. Minimal bleeding noted at this time pt. states there is minimal amount of blood on her pad since changing into the clean one. Order received to keep pt. on unit for observation until ultrasound report comes back.
--- NOTE | 2025-01-07 17:34 | PM.IMHP ---
H&P: HPI History of Present Illness Date/Time: 01/07/25 17:34 34-year-old 5 para 3013 female presents at 18 and 3 7th weeks with vaginal bleeding. Was seen 2 days ago with vaginal bleeding and ultrasound revealed 4.5cm length of cervix with no funneling. Was discharged home and did well until has another episode of bleeding today. This bleeding has for the most part resolved. She denies any cramping or trauma or intercourse or other inciting event. She has 3 prior deliveries with bilateral salpingectomy, and IVF this due to the history of salpingectomy. Chief Complaint: Vaginal bleeding PMFSH Past Medical History Medical History Asthma Surgical History Surgical History History of delivery x 3 H/O tubal ligation Family History Family History Father Throat cancer Heart disease Mother Heart disease Grandparent Diabetes mellitus Throat cancer Other Hypertension Social History Social History Smoking status: Former smoker Alcohol intake: former Alcohol use details: rare Substance use: never Substance use type: does not use Do You Feel Safe in your Home?: Yes Lack of Transportation: No Lack of Food: Never True Current Housing: I Have Housing Concerned About Future Housing: No Difficulty Paying Gas/Electric Bills: No Difficulty Paying for Meds: No Currently Unemployed: No Education: High School Diploma/GED Difficulty w/ Childcare or Family Care: No Living arrangements: with family Occupation/Education: unemployed Gender identity (if verbalized by the patient): Female Sexual Orientation (if Verbalized by the Patient): Straight or Heterosexual Meds Home Medications and Allergies Home Medications ?Medication ?Instructions ?Recorded ?Confirmed ?Type vits no.126-ferrous fum tablet PO 10/31/24 12/28/24 History 28 mg iron-folic acid 800 mcg tablet (Classic ) aspirin 81 mg tablet 162 mg PO DAILY 11/30/24 01/05/25 History famotidine 10 mg tablet (Pepcid AC) 20 mg PO BID 11/30/24 01/05/25 History ondansetron HCl 4 mg tablet 4 mg PO Q6H PRN nausea and 11/30/24 01/05/25 Rx vomiting #30 tabs Allergies Allergy/AdvReac Type Severity Reaction Status Date / Time nifedipine (From Procardia) Allergy Mild Hives Verified 01/05/25 05:11 Vital Signs Vital Signs - 24 hr 01/07/25 14:29 01/07/25 14:31 01/07/25 14:34 Pulse Rate 81 Blood Pressure 128/79 Pulse Oximetry 99 98 Oxygen Delivery 01/07/25 14:39 01/07/25 14:44 01/07/25 14:46 Pulse Rate 77 Blood Pressure 117/71 Pulse Oximetry 99 98 Oxygen Delivery 01/07/25 14:46 01/07/25 14:49 01/07/25 14:54 Pulse Rate Blood Pressure Pulse Oximetry 99 99 Oxygen Delivery Room Air 01/07/25 14:59 01/07/25 15:01 01/07/25 15:04 Pulse Rate 76 Blood Pressure 122/73 Pulse Oximetry 98 97 Oxygen Delivery Assessment and Plan Assessment and plan (1) Vaginal bleeding during : Code(s): O46.90 - Antepartum hemorrhage, unspecified, unspecified trimester Status: Acute Assessment and Plan: Cervical length on today's ultrasound reveals 3.6cm length well as minimal funneling is noted. This is different from her prior exam of again 4.5cm in length with no funneling. The bleeding has resolved she has no pain or discomfort and has experienced movement. Will be referring with [facility] regarding whether they would like to see her and examine, start on progesterone, or some other treatment. I do not feel at this point continuing to monitor at this facility would be reasonable has if she does need a cerclage would need to be with [facility]. Will update plan after speaking with them.
--- NOTE | 2025-01-07 18:02 | PC.NURSE ---
1759- RN and discharge specialist at bedside per request of MD to check pt. cervix. Cervix confirmed closed and thick with anterior position at this time. Scant bleeding on marcial pad from the original clean pad RN observed.
--- NOTE | 2025-01-10 09:27 | PM.OBTRLD ---
OB - Triage/Final Diagnosis Visit Information Reason for evaluation: threatened labor Comments/Additional reasons for admission: I have assessed the risk for this patient, Dorothycontreras Landon, and determined that she would benefit from observation care.
== END 2025-01-07 18:53 | disposition home or self-care (01) ==
PROVIDERS: Admitting Provider Obstetrics & Gynecology; Visit Provider Obstetrics & Gynecology
DX: O47.02 False labor before 37 completed weeks of gestation, second trimester (principal); Z3A.18 18 weeks gestation of pregnancy
CPT/HCPCS: 76817; G0378; G0379